=== PATIENT | female | born 1980 | race Caucasian/White ===

== ENCOUNTER 2021-05-03 23:58 | Emergency (ER) | payer OTHER ==
[~2021-05-03 23:58] MED LIST: CIPRO500 MG PO; IBUPROFEN600 MG PO; NORCO 5-325 TA1 EACH PO; ZOFRAN4 MG PO
[2021-05-04 00:37] LABS: HEMOGLOBIN 14.3 gm/dl (12.3-15.3); RED BLOOD COUNT 4.38 M/UL (4.00-5.10)
[2021-05-04 00:56] LABS: BUN/CREATININE RATIO 12 (0-10)
[2021-05-04] MEDS ORDERED: ZOFRAN ODT 4 MG4 MG PO (02:53)
[2021-05-04] MEDS ORDERED: BENTYL 20MG TAB20 MG PO (02:53)
== END 2021-05-04 03:25 | disposition home or self-care (01) ==
LOC: ER1 23:58
PROVIDERS: Physician Assistant
DX: R10.11 Right upper quadrant pain (principal); R10.31 Right lower quadrant pain; R11.2 Nausea with vomiting, unspecified; R19.7 Diarrhea, unspecified; Z90.710 Acquired absence of both cervix and uterus; Z91.041 Radiographic dye allergy status; F17.210 Nicotine dependence, cigarettes, uncomplicated
CPT/HCPCS: 80053; 81001; 83605; 83690; 85025; 87086; 96374; 96375; 99284; J2270; J2405; J7030